=== PATIENT | female | born 1960 | race Caucasian/White ===

== ENCOUNTER 2023-10-03 16:21 | Inpatient (IN) | payer MEDICARE, MEDICAID ==
[2023-10-03] MEDS ORDERED: Midazolam HCl 2 mg/2 ml Vial ONE (16:46)
[2023-10-03] MEDS ORDERED: fentaNYL 50 mcg/mL 1 mL Vial ONE (16:46)
[2023-10-03 16:50] LABS: Actual Bicarbonate (HCO3a) 32.9 mEq/L (22-28); Analyzer IN Cardio ER; Base Excess (BEa) 2.1 mEq/L (-2.0 to +3.0); Calcium, Ionized (arterial) 1.19 mmol/L (1.12-1.30); Carboxyhemoglobin (COHb) 1.2 gm% (0.0-3.0); Hematocrit-ABG 36 % (36.0-47.0); Hemoglobin (Hb) 12.4 g/dL (12.0-16.0); O2 Tension (PaO2), arterial 191.2 mmHg (> 80.0); Potassium - ABG Lab 4.49 mmol/L (3.70-5.30)
[2023-10-03 16:53] LABS: CO2 Tension 90.3 mmHg (35.0-45.0)
[2023-10-03 16:54] LABS: ALV-art Gradient 408.925 mmHg (0-20); Puncture Site Right Radial
[2023-10-03] MEDS ORDERED: Fentanyl BOLUS 250 ML IVPB PRN (17:15)
[2023-10-03 17:22] LABS: Globulin 2.4 g/dL (2.4-3.5)
[2023-10-03 17:27] LABS: ALT (SGPT) 35 U/L (8-55); AST (SGOT) 55 U/L (5-34); Acetaminophen Less than 10 mcg/mL (10.0-30.0); Albumin 3.8 g/dL (3.4-4.8); Alcohol Less than 10.0 mg/dL (Less than 10); Alkaline Phosphatase 61 U/L (40-110); Anion Gap 16 mmol/L (10-20); BUN (Urea Nitrogen) 19 mg/dL (9.8-20.1); Bilirubin, Total 0.4 mg/dL (0.2-1.2); CK (CPK) 3393 U/L (29-168); Calc. Creatinine Clearance 0 mL/min (70-130); Calcium 8.8 mg/dL (7.8-10.44); Carbon Dioxide 34 mmol/L (23-31); Chloride 100 mmol/L (98-107); Estimated GFR 91; Glucose 90 mg/dL (80-115); Potassium 4.9 mmol/L (3.5-5.1); Protein, Total 6.2 g/dL (5.8-8.1); Salicylate Less than 8.0 mg/dL (15.0-30.0); Sodium 145 mmol/L (136-145)
[2023-10-03 17:30] LABS: Hematocrit 40.1 % (36.0-47.0); Hemoglobin 11.6 g/dL (12.0-16.0); Mean Corpuscular HGB CONC 28.9 g/dL (32.0-36.0); Mean Corpuscular Hemoglobin 30.1 pg (27.0-31.0); Mean Corpuscular Volume 104.2 fL (78.0-98.0); Mean Platelet Volume 12.1 fL (7.4-10.4); Platelet Count 121 10x3/uL (130-400); RBC Distribution Width 13.2 % (11.5-14.5); Red Blood Cell (RBC) Count 3.85 mill/uL (4.20-5.40)
[2023-10-03 17:39] LABS: Troponin I 0.025 ng/mL (< 0.028)
[2023-10-03] MEDS ORDERED: Propofol 1,000 MG/100 ML VIAL IV ONE (18:04)
[2023-10-03 18:06] LABS: Anisocytosis SLIGHT = 6-15 cells HPF (0-5); Burr Cells SLIGHT = 2-5 cells HPF (0-1); Hypochromia SLIGHT = 6-15 cells HPF (0-5); Macrocytosis SLIGHT = 6-15 cells HPF (0-5); Platelet Adequacy Comment Platelets Decreased; Polychromasia SLIGHT = 2-3 cells HPF (0-2)
[2023-10-03 18:08] LABS: #Basophils Less than 0.03 10x3/uL (0.0-0.2); #Eosinphils Less than 0.03 10x3/uL (0.0-0.7); %Basophils 0.1 % (0.0-1.0); %Eosinophils 0.1 % (0.0-10.0); %Lymphocytes 1.5 % (21.0-51.0); %Monocytes 4.1 % (0.0-10.0); %Neutrophils 93.3 % (42.0-75.0)
[2023-10-03] MEDS ORDERED: Cefepime 1 GM VIAL ONE (18:42)
[2023-10-03] MEDS ORDERED: Sodium Chloride 0.9% 200 ML ONE (18:43)
[2023-10-03 18:44] LABS: Bilirubin Negative (Negative); Blood, Urine 2+ (Negative); CAUTI Indications for Culture Alt mental st,lethar; Clarity Clear (Clear); Glucose, Urine (Dipstick) Normal (Negative); Ketone, Urine Trace mg/dL (Negative); Leukocyte 500 Leu/uL (Negative); Nitrite Negative (Negative); Protein, Urine (Dipstick) 10 mg/dL (Neg-Trace); RBC/HPF 0-3 HPF (0-3); Squamous Epithelial None Seen HPF (0-3); Urobilinogen Normal mg/dL (Less than 2); pH, Urine 5.5 (5.0-9.0)
[2023-10-03 18:46] LABS: Bacteria/HPF 1+ HPF (None Seen)
[2023-10-03 18:47] LABS: Urine Culture Reflex No No
[2023-10-03 18:59] LABS: Amphetamine Not Detected (NotDetected); Barbiturates Screen Not Detected (NotDetected); Benzodiazepine Screen Detected (NotDetected); Cocaine Metabolite Screen Not Detected (NotDetected); Methadone Not Detected (NotDetected); Methamphetamine Not Detected (NotDetected); Opiate Screen Detected (NotDetected); Oxycodone Screen Not Detected (NotDetected); Phencyclidine (PCP) Not Detected (NotDetected); THC/Cannabinoid Screen Not Detected (NotDetected); Tricyclic Screen Not Detected (NotDetected)
[2023-10-03] MEDS ORDERED: Ondansetron ODT 4 MG TAB PO PRN (19:29)
[2023-10-03] MEDS ORDERED: Ondansetron PF 4 MG/2 ML Vial IVP PRN (19:29)
[2023-10-03] MEDS ORDERED: Acetaminophen 650 MG Suppository PR PRN (19:29)
[2023-10-03] MEDS ORDERED: LORazepam 2 MG/ML SYR.(CARPUJECT) ONE (19:42)
[2023-10-03] MEDS ORDERED: Ventilator Sedation Protocol 1 EACH FS SCH (20:15)
[2023-10-03] MEDS: Sterile Water 10 ML ONE (20:49)
[2023-10-03] MEDS: Vecuronium 10 MG VIAL ONE (20:49)
[2023-10-03] MEDS ORDERED: Propofol BOLUS 1,000 MG/100 ML VIAL IV PRN (21:00)
[2023-10-03 21:18] VITALS: BMI 19.3
[2023-10-03] MEDS: Vancomycin 1 GM in Premix 1 BAG IVPB SCH (21:22)
[2023-10-03 23:06] LABS: Troponin I 0.032 ng/mL (< 0.028)
[2023-10-04] MEDS: Propofol 1,000 MG/100 ML VIAL IV PRN (01:22)
[2023-10-04 01:27] LABS: Troponin I 0.021 ng/mL (< 0.028)
[2023-10-04] MEDS ORDERED: Vancomycin 1 GM in Premix 1 BAG IVPB SCH (02:00)
[2023-10-04] MEDS: Sodium Chloride 0.9% 1,000 ML IV SCH ×2 (03:23→04:45)
[2023-10-04] MEDS: Vancomycin HCl 750 MG in Sodium Chloride 0.9% 250 ML 250 ML IVPB SCH ×2 (03:23→12:16)
[2023-10-04] MEDS: Cefepime 2 GM in Sodium Chloride 0.9% 100 ML IVPB SCH (05:03)
[2023-10-04 05:22] LABS: #Basophils Less than 0.03 10x3/uL (0.0-0.2); #Eosinphils Less than 0.03 10x3/uL (0.0-0.7); %Basophils 0.1 % (0.0-1.0); %Eosinophils 0.1 % (0.0-10.0); %Lymphocytes 7.7 % (21.0-51.0); %Monocytes 8.6 % (0.0-10.0); %Neutrophils 82.8 % (42.0-75.0); Hematocrit 34.5 % (36.0-47.0); Hemoglobin 10.3 g/dL (12.0-16.0); Mean Corpuscular HGB CONC 29.9 g/dL (32.0-36.0); Mean Corpuscular Hemoglobin 29.5 pg (27.0-31.0); Mean Corpuscular Volume 98.9 fL (78.0-98.0); Mean Platelet Volume 12.7 fL (7.4-10.4); Platelet Count 101 10x3/uL (130-400); RBC Distribution Width 13.8 % (11.5-14.5); Red Blood Cell (RBC) Count 3.49 mill/uL (4.20-5.40)
[2023-10-04 05:42] LABS: Anion Gap 13 mmol/L (10-20); BUN (Urea Nitrogen) 16 mg/dL (9.8-20.1); Calc. Creatinine Clearance 66 mL/min (70-130); Calcium 8.7 mg/dL (7.8-10.44); Carbon Dioxide 34 mmol/L (23-31); Chloride 99 mmol/L (98-107); Estimated GFR 96; Glucose 125 mg/dL (80-115); Potassium 4.4 mmol/L (3.5-5.1); Sodium 142 mmol/L (136-145)
[2023-10-04] MEDS: Fentanyl CADD 100 ML IV SCH (08:37)
[2023-10-04] MEDS: Pantoprazole 40 MG VIAL IVP SCH (08:37)
[2023-10-04] MEDS ORDERED: Vancomycin (BATCH) 1.25 GM in Premix 1 BAG IVPB SCH (09:00)
[2023-10-04] MEDS: Cefepime 1 GM in Sodium Chloride 0.9% 100 ML IVPB SCH (17:13)
[2023-10-04] MEDS: Lorazepam 2 MG/ML VIAL SLOW IVP PRN (20:16)
[2023-10-04] MEDS: Ipratropium/Albuterol 3 ML NEB ONE (22:53)
[2023-10-04] MEDS: Ipratropium/Albuterol 3 ML NEB NEB SCH (22:54)
[2023-10-04] MEDS ORDERED: Vecuronium 10 MG VIAL IVP PRN (22:59)
[2023-10-05 05:00] LABS: Vancomycin, Random 35.9 ug/mL (See Comment)
[2023-10-05] MEDS: Haloperidol 1 MG TAB PO PRN (10:09)
[2023-10-05] MEDS: Cefepime 2 GM in Sodium Chloride 0.9% 100 ML IVPB SCH (17:10)
[2023-10-06 12:26] LABS: Globulin 2.4 g/dL (2.4-3.5)
[2023-10-06 12:30] LABS: ALT (SGPT) 24 U/L (8-55); AST (SGOT) 30 U/L (5-34); Albumin 2.5 g/dL (3.4-4.8); Alkaline Phosphatase 44 U/L (40-110); Anion Gap 13 mmol/L (10-20); BUN (Urea Nitrogen) 12 mg/dL (9.8-20.1); Calc. Creatinine Clearance 91 mL/min (70-130); Carbon Dioxide 25 mmol/L (23-31); Chloride 107 mmol/L (98-107); Estimated GFR 104; Glucose 103 mg/dL (80-115); Potassium 3.6 mmol/L (3.5-5.1); Protein, Total 4.9 g/dL (5.8-8.1); Sodium 141 mmol/L (136-145)
[2023-10-06 14:40] LABS: Bilirubin, Total 0.4 mg/dL (0.2-1.2); Calcium 8.8 mg/dL (7.8-10.44)
[2023-10-06] MEDS ORDERED: Electrolyte Replacement Protocol FS SCH (17:00)
[2023-10-07 07:17] LABS: Globulin 2.4 g/dL (2.4-3.5)
[2023-10-07 07:21] LABS: ALT (SGPT) 21 U/L (8-55); AST (SGOT) 26 U/L (5-34); Albumin 2.4 g/dL (3.4-4.8); Alkaline Phosphatase 41 U/L (40-110); Anion Gap 17 mmol/L (10-20); BUN (Urea Nitrogen) 9 mg/dL (9.8-20.1); Calc. Creatinine Clearance 109 mL/min (70-130); Carbon Dioxide 21 mmol/L (23-31); Chloride 104 mmol/L (98-107); Estimated GFR 107; Glucose 96 mg/dL (80-115); Potassium 3.3 mmol/L (3.5-5.1); Protein, Total 4.8 g/dL (5.8-8.1); Sodium 139 mmol/L (136-145)
[2023-10-07 08:27] LABS: Band 5 % (5-11); Eosinophils 2 % (0-10); Giant Platelets 1.9 % (0-5); Large Platelets 15.4 % (0-5); Lymphocytes 12 % (21-51); Monocytes 4 % (0-10); Neutrophil 76 % (42-75); Platelet Adequacy Comment Significant Decrease
[2023-10-07 08:34] LABS: Hematocrit 32.2 % (36.0-47.0); Hemoglobin 9.9 g/dL (12.0-16.0); Mean Corpuscular HGB CONC 30.7 g/dL (32.0-36.0); Mean Corpuscular Hemoglobin 29.7 pg (27.0-31.0); Mean Corpuscular Volume 96.7 fL (78.0-98.0); Mean Platelet Volume 12.6 fL (7.4-10.4); Platelet Count 87 10x3/uL (130-400); RBC Distribution Width 14.8 % (11.5-14.5); Red Blood Cell (RBC) Count 3.33 mill/uL (4.20-5.40)
[2023-10-07] MEDS: Potassium Chloride 20 MEQ in Premix 1 BAG IVPB SCH (08:34)
[2023-10-07] MEDS: methylPREDNISolone Sod Succ 40 MG VIAL IVP SCH (11:56)
[2023-10-07] MEDS ORDERED: methylPREDNISolone Sod Succ/PF 125 MG/2 ML VIAL IVP SCH (12:00)
[2023-10-07 12:24] LABS: Bilirubin, Total 0.4 mg/dL (0.2-1.2); Calcium 8.1 mg/dL (7.8-10.44)
[2023-10-07] MEDS: Morphine 2 MG/ML VIAL SLOW IVP PRN (22:37)
[2023-10-08 05:47] LABS: #Basophils Less than 0.03 10x3/uL (0.0-0.2); #Eosinphils Less than 0.03 10x3/uL (0.0-0.7); %Lymphocytes 5.9 % (21.0-51.0); %Monocytes 2.5 % (0.0-10.0); %Neutrophils 91.3 % (42.0-75.0); Hematocrit 31.7 % (36.0-47.0); Hemoglobin 9.9 g/dL (12.0-16.0); Mean Corpuscular HGB CONC 31.2 g/dL (32.0-36.0); Mean Corpuscular Hemoglobin 29.6 pg (27.0-31.0); Mean Corpuscular Volume 94.9 fL (78.0-98.0); Mean Platelet Volume 13.2 fL (7.4-10.4); Platelet Count 107 10x3/uL (130-400); RBC Distribution Width 14.8 % (11.5-14.5); Red Blood Cell (RBC) Count 3.34 mill/uL (4.20-5.40)
[2023-10-08 06:17] LABS: Globulin 2.4 g/dL (2.4-3.5)
[2023-10-08 06:21] LABS: ALT (SGPT) 23 U/L (8-55); AST (SGOT) 30 U/L (5-34); Albumin 2.8 g/dL (3.4-4.8); Alkaline Phosphatase 42 U/L (40-110); Anion Gap 19 mmol/L (10-20); BUN (Urea Nitrogen) 11 mg/dL (9.8-20.1); Bilirubin, Total 0.4 mg/dL (0.2-1.2); Calc. Creatinine Clearance 95 mL/min (70-130); Calcium 8.6 mg/dL (7.8-10.44); Carbon Dioxide 21 mmol/L (23-31); Chloride 106 mmol/L (98-107); Estimated GFR 103; Glucose 106 mg/dL (80-115); Protein, Total 5.2 g/dL (5.8-8.1); Sodium 142 mmol/L (136-145)
[2023-10-08] MEDS: Cefdinir 300 MG CAP PO SCH (21:15)
[2023-10-09 05:37] LABS: #Basophils Less than 0.03 10x3/uL (0.0-0.2); %Basophils 0.3 % (0.0-1.0); %Eosinophils 0.6 % (0.0-10.0); %Lymphocytes 12.4 % (21.0-51.0); %Monocytes 9.5 % (0.0-10.0); %Neutrophils 76.4 % (42.0-75.0); Hematocrit 30.9 % (36.0-47.0); Hemoglobin 9.4 g/dL (12.0-16.0); Mean Corpuscular HGB CONC 30.4 g/dL (32.0-36.0); Mean Corpuscular Hemoglobin 29.1 pg (27.0-31.0); Mean Corpuscular Volume 95.7 fL (78.0-98.0); Platelet Count 139 10x3/uL (130-400); Red Blood Cell (RBC) Count 3.23 mill/uL (4.20-5.40)
[2023-10-09 05:57] LABS: ALT (SGPT) 24 U/L (8-55); AST (SGOT) 26 U/L (5-34); Albumin 2.9 g/dL (3.4-4.8); Alkaline Phosphatase 40 U/L (40-110); Anion Gap 11 mmol/L (10-20); BUN (Urea Nitrogen) 9 mg/dL (9.8-20.1); Bilirubin, Total 0.4 mg/dL (0.2-1.2); Calc. Creatinine Clearance 98 mL/min (70-130); Calcium 8.3 mg/dL (7.8-10.44); Carbon Dioxide 27 mmol/L (23-31); Chloride 108 mmol/L (98-107); Estimated GFR 104; Globulin 2.1 g/dL (2.4-3.5); Glucose 104 mg/dL (80-115); Sodium 143 mmol/L (136-145)
[2023-10-09] MEDS: Ipratropium/Albuterol 3 ML NEB ONE (07:51)
[2023-10-09] MEDS: predniSONE 20 MG TAB PO SCH (08:55)
[2023-10-09] MEDS: Potassium Bicarbonate/Cit Ac 20 MEQ TAB PO SCH (08:58)
[2023-10-09 13:00] VITALS: BMI 21.9
[2023-10-09] MEDS: Milk Of Magnesia 30 ML UDCUP PO PRN (14:29)
[2023-10-10] MEDS: Acetaminophen 325 MG TAB PO PRN (07:43)
[2023-10-10] MEDS: Pantoprazole DR 40 MG TAB PO SCH (07:43)
[2023-10-10 14:55] LABS: Troponin I 0.019 ng/mL (< 0.028)
[2023-10-10] MEDS: Mag-Al 1200 mg/1200 mg/30 ML UDCUP PO PRN (15:50)
[2023-10-10] MEDS: Promethazine 25 MG TAB PO PRN (18:30)
[2023-10-10] MEDS: Ibuprofen 200 MG TAB PO PRN (21:17)
[2023-10-10] MEDS: Cephalexin 250 MG CAP PO SCH (21:17)
[2023-10-10] MEDS: Doxycycline 100 MG CAP PO SCH (21:17)
[2023-10-11 05:26] LABS: #Basophils 0.04 10x3/uL (0.0-0.2); %Basophils 0.5 % (0.0-1.0); %Eosinophils 1.7 % (0.0-10.0); %Lymphocytes 19.8 % (21.0-51.0); %Neutrophils 67.1 % (42.0-75.0); Hematocrit 32.9 % (36.0-47.0); Mean Corpuscular HGB CONC 30.4 g/dL (32.0-36.0); Mean Corpuscular Hemoglobin 28.9 pg (27.0-31.0); Mean Corpuscular Volume 95.1 fL (78.0-98.0); Mean Platelet Volume 11.6 fL (7.4-10.4); Platelet Count 232 10x3/uL (130-400); RBC Distribution Width 14.7 % (11.5-14.5); Red Blood Cell (RBC) Count 3.46 mill/uL (4.20-5.40)
[2023-10-11 07:39] LABS: Anion Gap 9 mmol/L (10-20); BUN (Urea Nitrogen) 11 mg/dL (9.8-20.1); CK (CPK) 139 U/L (29-168); Calc. Creatinine Clearance 107 mL/min (70-130); Calcium 8.9 mg/dL (7.8-10.44); Carbon Dioxide 35 mmol/L (23-31); Chloride 103 mmol/L (98-107); Estimated GFR 106; Glucose 100 mg/dL (80-115); Magnesium 1.9 mg/dL (1.6-2.6); Potassium 3.7 mmol/L (3.5-5.1); Sodium 143 mmol/L (136-145)
[2023-10-11] MEDS: Magnesium 2 GM/50 ML(in water) 2 GM in Premix 1 BAG IVPB SCH (08:45)
[2023-10-11] MEDS: Polyethylene Glycol 3350 17 GM Packet PO PRN (10:00)
[2023-10-11] MEDS: HYDROcodone/Acetaminophen 5/325 mg Tablet PO PRN (15:39)
[2023-10-12] MEDS ORDERED: Lorazepam 0.5 MG TAB PO SCH (20:00)
[2023-10-12] MEDS: Lorazepam 1 MG TAB PO SCH (20:21)
[2023-10-13 07:53] VITALS: BP 165/105; TEMP 98.1
== END 2023-10-13 12:20 | disposition hospice, home (50) | DRG 207 ==
LOC: EDBD 16:21 → ERS 16:21 → CCU 19:15 → MSONC 10-09 16:02
PROVIDERS: ADMIT Student in an Organized Health Care Education/Training Program; ATTEND Emergency Medicine
PROC: 4A033R1 Measurement of Arterial Saturation, Peripheral, Percutaneous Approach (ICD-10-PCS; principal; 2023-10-03)
PROC: 5A1955Z Respiratory Ventilation, Greater than 96 Consecutive Hours (ICD-10-PCS; 2023-10-03)
PROC: 0BH17EZ Insertion of Endotracheal Airway into Trachea, Via Natural or Artificial Opening (ICD-10-PCS; 2023-10-03)
DX: J96.21 Acute and chronic respiratory failure with hypoxia (principal); G92.8 Other toxic encephalopathy; A41.9 Sepsis, unspecified organism; M62.82 Rhabdomyolysis; E87.29 Other acidosis; J96.22 Acute and chronic respiratory failure with hypercapnia; J44.9 Chronic obstructive pulmonary disease, unspecified; F17.210 Nicotine dependence, cigarettes, uncomplicated; E87.6 Hypokalemia; Z91.138 Patient's unintentional underdosing of medication regimen for other reason; Z79.899 Other long term (current) drug therapy; Z51.5 Encounter for palliative care; Z88.8 Allergy status to other drugs, medicaments and biological substances
CPT/HCPCS: 36415; 51702; 70450; 71045; 80048; 80053; 80202; 80306; 80307; 81001; 82140; 82550; 82565; 82805; 83735; 84484; 85025; 93005; 93010; 94002; 94003; 94640; 94760; 96365; 96366; 96368; 96375; 96376; C9113; J0692; J2060; J2250; J2272; J2704; J2920; J3010; J3370; J3370-JW; J3475; J3480; J3490; J7050; J7512; J7620; Q0169